=== PATIENT | male | born 1990 | race Two or more races ===

== ENCOUNTER → 2023-06-26 | Emergency (ER) | payer OTHER ==
[~2023-06-26] VITALS: Ht 185.4 cm; Wt 77.1 kg
[~2023-06-26] MED LIST: HUMALOG100 UNIT/2
== END | disposition left against medical advice (07) ==
LOC: ER 00:22
DX: Z53.21 Procedure and treatment not carried out due to patient leaving prior to being seen by health care provider (principal)